=== PATIENT | female | born 2005 | race Caucasian/White ===

== ENCOUNTER 2024-04-22 11:18 | Emergency (ER) | payer OTHER, SELFPAY ==
--- NOTE | ~2024-04-22 | CT_ITS ---
CT of the Abdomen and Pelvis: Indication: Abdominal pain Technique: 2.5 mm axial scans were obtained through the abdomen and pelvis following intravenous adm inistration of 100 cc of Omnipaque 350. Dose reduction technique was used on this scan by utilizing a utomated exposure control and iterative reconstruction technique. The dose-length product (DLP) was 1 541.74 mGy-cm. Findings: Scans through the lung bases are unremarkable. The liver, spleen, pancreas, gallbladder, adrenals and kidneys are within normal limits. No evidence of aortic aneurysm. No lymphadenopathy. No bowel obstruction or bowel wall thickening. There is no evidence to suggest acute appendicitis. Images through the pelvis were performed. Urinary bladder unremarkable. No pelvic mass seen. No ascit es. Impression: No significant abnormalities seen. Reviewed, dictated and finalized at [facility]. Impression: No significant abnormalities seen.
[2024-04-22 11:29] VITALS: BP 142/82; PULSE 102; RESP 16; TEMP 36.6; O2SAT 98
--- NOTE | 2024-04-22 12:33 | ED.GENADULT ---
HPI - General Adult General Chief complaint: Abdominal Pain Stated complaint: abd pain N/V/D Time Seen by Provider: 04/22/24 12:23 Focused HPI: This is a 19-year-old female who presents to the ED with chief complaint of left lower quadrant abdominal pain referral from urgent care today. Endorsing N/V/D for the past couple of days as well. Reports multiple episodes of diarrhea and a couple episodes of vomiting. Denies GI bleeding symptoms. Endorses fever with T-max of 102? last night. Denies urinary symptoms, significant flank pain, back pain, chest pain, shortness of breath, cough. GENERAL: Well-appearing, well-nourished, and in no acute distress. HEAD: Normocephalic, atraumatic. CHEST: Clear to auscultation. No respiratory distress. HEART: Regular rate and rhythm. ABD: tenderness in LLQ without peritoneal signs. NEURO: Alert and oriented x3. Patient screened in triage and initial orders placed. Additional care and disposition to be based upon diagnostic testing and treatment. Source: patient Mode of arrival: ambulatory Limitations: no limitations Related Data Home Medications Medication Instructions Recorded Confirmed escitalopram oxalate 20 mg tablet 20 mg PO DAILY 04/22/24 04/22/24 (Lexapro) etonogestrel 0.12 mg-ethinyl 1 vag ring vaginal ONCE 04/22/24 04/22/24 estradiol 0.015 mg/24 hr vaginal ring (NuvaRing) Allergies Allergy/AdvReac Type Severity Reaction Status Date / Time No Known Allergies Allergy Verified 04/22/24 14:43 Course Vital Signs Vital signs: Vital Signs Temperature 97.8 F 04/22/24 11:29 Pulse Rate 102 H 04/22/24 11:29 Respiratory Rate 16 04/22/24 11:29 Blood Pressure 142/82 H 04/22/24 11:29 Pulse Oximetry 98 04/22/24 11:29 Temperature 98 F 04/22/24 15:30 Pulse Rate 77 04/22/24 15:30 Respiratory Rate 16 04/22/24 15:30 Blood Pressure 118/82 04/22/24 15:30 Pulse Oximetry 100 04/22/24 15:30 Medical Decision Making Vital Signs Vital Signs: Vital Signs Temperature 97.8 F 04/22/24 11:29 Pulse Rate 102 H 04/22/24 11:29 Respiratory Rate 16 04/22/24 11:29 Blood Pressure 142/82 H 04/22/24 11:29 Pulse Oximetry 98 04/22/24 11:29 Temperature 98 F 04/22/24 15:30 Pulse Rate 77 04/22/24 15:30 Respiratory Rate 16 04/22/24 15:30 Blood Pressure 118/82 04/22/24 15:30 Pulse Oximetry 100 04/22/24 15:30 Lab Data 04/22/24 12:43 04/22/24 12:43 Labs: Lab Results 04/22/24 04/22/24 Range/Units 12:43 13:06 WBC 14.8 H (4.5-10.0) K/mm3 RBC 5.35 (4.2-5.4) M/mm3 Hgb 14.5 (12.0-15.0) g/dL Hct 45.4 (37.0-47.0) % MCV 84.9 (80-100) fl MCH 27.1 (26-34) pg MCHC 31.9 L (32-36) g/dl RDW 15.9 H (11.5-14.5) % Plt Count 391 H (150-375) k/mm3 MPV 9.6 (7.4-10.4) fl Immature Gran % (Auto) 0.4 (0-0.5) % Neut % (Auto) 75.0 H (45.5-73.1) % Lymph % (Auto) 18.1 L (18.3-44.2) % [place] % (Auto) 5.2 (2.6-8.5) % Eos % (Auto) 0.8 (0-4.4) % Baso % (Auto) 0.5 (0.2-1.2) % Lymph # (Auto) 2.67 (0.9-3.2) K/mm3 [place] # (Auto) 0.8 H (0.1-0.6) K/mm3 Eos # (Auto) 0.1 (0-0.3) K/mm3 Baso # (Auto) 0.1 (0.0-0.1) K/mm3 Abs Immat Gran (auto) 0.06 H (0.00-0.031) K/mm3 Absolute Neuts (auto) 11.1 H (1.3-6.7) K/mm3 Absolute Nucleated RBC 0.000 (0.0-0.012) K/mm3 Nucleated RBC % 0.0 (0.0-0.2) % Sodium 139 (137-145) mmol/L Potassium 4.2 (3.4-5.0) mmol/L Chloride 102 (98-107) mmol/L Carbon Dioxide 24 (22-30) mmol/L Anion Gap 13 H (4-12) mmol/L BUN 9 (7-17) mg/dL Creatinine 0.60 L (0.7-1.0) mg/dL Estim Creat Clear Calc 173 ml/min Estimated GFR > 60 (59 - ) Glucose 84 (65-110) mg/dL Calcium 9.1 (8.4-10.2) mg/dL Total Bilirubin 0.3 (0.2-1.3) mg/dL AST 23 (14-36) U/L ALT 21 (6-35) U/L Alkaline Phosphatase 139 H (38-126) U/L Total Protein 9.0 H (6.3-8.2) g/dL Albumin
[2024-04-22 13:01] LABS: Basophils Absolute Auto 0.1 K/mm3 (0.0-0.1); Basophils Percent Auto 0.5 % (0.2-1.2); Eosinophils Absolute Auto 0.1 K/mm3 (0-0.3); Eosinophils Percent Auto 0.8 % (0-4.4); Hematocrit 45.4 % (37.0-47.0); Hemoglobin 14.5 g/dL (12.0-15.0); Immature Granulocyte Absolute 0.06 K/mm3 (0.00-0.031); Immature Granulocyte Percent A 0.4 % (0-0.5); Lymphocytes Absolute Auto 2.67 K/mm3 (0.9-3.2); Lymphocytes Percent Auto 18.1 % (18.3-44.2); Mean Corpuscular HGB Conc 31.9 g/dl (32-36); Mean Corpuscular Hemoglobin 27.1 pg (26-34); Mean Corpuscular Volume 84.9 fl (80-100); Mean Platelet Volume 9.6 fl (7.4-10.4); Monocytes Absolute Auto 0.8 K/mm3 (0.1-0.6); Monocytes Percent Auto 5.2 % (2.6-8.5); Neutrophils Absolute Auto 11.1 K/mm3 (1.3-6.7); Platelet Count Result 391 k/mm3 (150-375); Red Blood Count 5.35 M/mm3 (4.2-5.4); Red Cell Distribution Width 15.9 % (11.5-14.5); White Blood Count 14.8 K/mm3 (4.5-10.0)
[2024-04-22 13:03] LABS: Add Urine Microscopic? NO; Appearance Urine Clear (Clear); Bilirubin Urine Negative (Negative); Blood Urine Negative (Negative); Color Urine Yellow (Yellow); Glucose Urine UA Negative (Negative); Ketones Urine Negative (Negative); Leukocyte Esterase Ur Negative LEU/UL (Negative); Nitrate Urine Negative (Negative); Protein Urine Negative (Negative); Specific Grav Ur 1.024 (1.001-1.035); Urobilinogen Urine 0.2 mg/dL (<2.0); pH Urine 5.5 (5.0-9.0)
[2024-04-22 13:08] LABS: BEDSIDEPREGUCG Negative
[2024-04-22 13:14] LABS: Alanine Aminotransferase 21 U/L (6-35); Albumin Level 4.7 g/dL (3.5-5.1); Alkaline Phosphatase 139 U/L (38-126); Anion Gap 13 mmol/L (4-12); Aspartate Amino Transferase 23 U/L (14-36); Bilirubin,Total 0.3 mg/dL (0.2-1.3); Blood Urea Nitrogen 9 mg/dL (7-17); Calcium 9.1 mg/dL (8.4-10.2); Carbon Dioxide 24 mmol/L (22-30); Chloride 102 mmol/L (98-107); Estimated CRCL calculation 173 ml/min; Estimated Glomerular Filt Rate > 60; Glucose 84 mg/dL (65-110); Lipase 151 U/L (23-300); Potassium 4.2 mmol/L (3.4-5.0); Sodium 139 mmol/L (137-145)
[2024-04-22 14:45] VITALS: BP 125/75; PULSE 90; RESP 18; O2SAT 100
[2024-04-22] MEDS: LOPERAMIDE HCL 2 MG CAPSULE 4 MG PO (14:46)
[2024-04-22] MEDS: LACTATED RINGERS 1,000 ML 999 ML IV CONT (14:46)
[2024-04-22] MEDS: ONDANSETRON INJ 4 MG/2 ML VIAL IV PUSH (14:46)
[2024-04-22 15:30] VITALS: BP 118/82; PULSE 77; RESP 16; TEMP 36.6; O2SAT 100
== END 2024-04-22 15:34 | disposition home or self-care (01) ==
PROVIDERS: Physician Assistant; Emergency Provider Emergency Medicine
DX: R11.2 Nausea with vomiting, unspecified (principal); R19.7 Diarrhea, unspecified
CPT/HCPCS: 36415; 74177; 80053; 81003; 81025; 83690; 85025; 96361; 96374; 99284; A9270; J2405; J7120; Q9967

== ENCOUNTER 2024-09-08 04:08 | Emergency (ER) | payer OTHER, SELFPAY ==
[2024-09-08 04:15] VITALS: BP 129/62; PULSE 90; RESP 15; TEMP 36.9; O2SAT 98
[2024-09-08] MEDS: KETOROLAC 30 MG/ML VIAL (*BKC) 15 MG IM (04:34)
[2024-09-08 04:48] LABS: Strep Group A RT-PCR DETECTED (Negative)
--- NOTE | 2024-09-08 05:03 | ED_ITS ---
HPI - General Adult General Chief complaint: Unspecified Stated complaint: sore throat Time Seen by Provider: 09/08/24 04:10 History of Present Illness HPI narrative: Patient is a 19-year-old female who presents to the emergency department this evening complaining of a sore throat that started last night around 2200. Patient states that she generated at home but the pain persisted and she finally decided to come to the emergency department. Patient states that she does have a lot of pain with swallowing describing as following a knife. Patient reports fevers at home she states she took some Tylenol prior to arrival. Denies any cough, nasal congestion, or any shortness of breath. No additional symptoms or concerns at this time. Related Data Home Medications ?Medication ?Instructions ?Recorded ?Confirmed ?Last Taken ?Type escitalopram oxalate 20 mg tablet 20 mg PO DAILY 04/22/24 04/22/24 04/21/24 History (Lexapro) etonogestrel 0.12 mg-ethinyl 1 vag ring vaginal ONCE 04/22/24 04/22/24 Unknown History estradiol 0.015 mg/24 hr vaginal ring (NuvaRing) Allergies Allergy/AdvReac Type Severity Reaction Status Date / Time No Known Allergies Allergy Verified 09/08/24 04:21 Review of Systems Review of Systems: All systems are reviewed and are negative unless stated otherwise in the HPI. Exam Narrative: General: Alert, awake, afebrile, in no acute distress. HEENT: PERRL, no rhinorrhea, no post nasal drip, oropharynx erythema, no tonsillar exudates. Neck: Trachea midline, no JVD, no lymphadenopathy. Cardiovascular: Regular rate and rhythm, no murmurs, rubs or gallops, no peripheral edema. Respiratory: Clear to auscultation bilaterally, no tachypnea, no wheezing, no rhonchi, no rubs, no respiratory distress. Abdomen: Soft, nontender, nondistended, no rebound, no guarding, no peritoneal signs. Musculoskeletal: No joint swelling or deformity, normal muscle tone. Skin: No rashes or petechia, no signs of infection. Psychiatric: Alert and oriented, normal behavior and judgment for situation. Neurological: Alert and oriented to person, place, and time. Follows all commands. No focal deficits, speech is clear and fluent. Course Vital Signs Vital signs: Vital Signs Temperature 98.4 F 09/08/24 04:15 Pulse Rate 90 09/08/24 04:15 Respiratory Rate 15 09/08/24 04:15 Blood Pressure 129/62 09/08/24 04:15 Pulse Oximetry 98 09/08/24 04:15 Oxygen Delivery Room Air 09/08/24 04:15 Temperature 98.4 F 09/08/24 04:15 Pulse Rate 90 09/08/24 04:15 Respiratory Rate 15 09/08/24 04:15 Blood Pressure 129/62 09/08/24 04:15 Pulse Oximetry 98 09/08/24 04:15 Oxygen Delivery Room Air 09/08/24 04:15 Medical Decision Making MDM Narrative Medical decision making narrative: The patient was evaluated by myself in the emergency department. History is obtained from patient who is an independent historian and physical exam was performed. External medical records were reviewed at this time. Patient was administered 15 mg of IM Toradol and throat lozenges. Strep swab did return back positive for strep A. Differential diagnosis considerations include strep pharyngitis, acute viral syndrome, viral pharyngitis. Comorbidities impacting this visit include none. I have evaluated and discussed social determinants of health with the patient that could potentially impact subsequent diagnosis and treatment plans. On repeat assessment of the patient, reevaluation revealed that the patient is doing well and is in no acute distress. Patient symptoms have improved since she arrived to our emergency department. Repeat vital signs were all reviewed and noted to be stable. Differential diagnosis and treatment plan were discussed with the patient at bedside. Patient agrees with discussion and after shared medical decision making agrees with discharge. All questions were answered to the patient's satisfaction. Patient will follow up with her PCP in 3-5 days. Script for amoxicillin was sent to patient's pharmacy and she was instructed to take as prescribed. Patient was provided with strict return precautions and instructed to return to the emergency department if any new or worsening symptoms develop. The patient was discharged in stable condition. Vital Signs Vital Signs: Vital Signs Temperature 98.4 F 09/08/24 04:15 Pulse Rate 90 09/08/24 04:15 Respiratory Rate 15 09/08/24 04:15 Blood Pressure 129/62 09/08/24 04:15 Pulse Oximetry 98 09/08/24 04:15 Oxygen Delivery Room Air 09/08/24 04:15 Temperature 98.4 F 09/08/24 04:15 Pulse Rate 90 09/08/24 04:15 Respiratory Rate 15 09/08/24 04:15 Blood Pressure 129/62 09/08/24 04:15 Pulse Oximetry 98 09/08/24 04:15 Oxygen Delivery Room Air 09/08/24 04:15 Lab Data Labs: Lab Results 09/08/24 Range/Units 04:22 Influenza A (RT-PCR) Pending Influenza B (RT-PCR) Pending RSV (RT-PCR) Pending SARS-CoV-2 RNA (RT-PCR) Pending Group A Strep (PCR) Detected A (Negative) Discharge Plan Discharge Clinical Impression: Strep pharyngitis Patient Disposition: Home, Self-Care Condition: Improved Instructions: Antibiotic Form, Pharyngitis (ED) Additional Instructions: Please take the prescribed antibiotic as instructed. Follow-up with your family doctor within the next 3-5 days and return to the emergency department if any new or worsening symptoms develop. Patient Language: Sinhala Prescriptions: New amoxicillin 500 mg tablet 500 mg PO Q12H 10 Days Qty: 20 0RF No Action etonogestrel-ethinyl estradiol [NuvaRing] 0.12-0.015 mg/24 hr Ring 1 vag ring VAGINAL ONCE escitalopram oxalate [Lexapro] 20 mg Tablet 20 mg PO DAILY ondansetron 4 mg tablet,disintegrating 4 mg PO Q8H PRN (Reason: nausea and vomiting) Qty: 10 0RF bismuth subsalicylate [Bismuth] 262 mg tablet,chewable 2 tablet PO QID PRN (Reason: diarrhea) 5 Days Qty: 20 0RF Follow-up/Referrals: Gonzalo Calderon MD [Physician] - 3 Days UNKNOWN,DOCTOR [Primary Care Provider] - 3 Days Time of Disposition: 05:09
[2024-09-08 05:04] LABS: Influenza A QL RT-PCR Negative (Negative); Influenza B QL RT-PCR Negative (Negative); RSV RNA, RT-PCR Negative (Negative); SARS-CoV-2 RNA PCR Negative (Negative)
[2024-09-08 05:35] VITALS: BP 114/82; PULSE 88; RESP 14; O2SAT 98
--- OUTSIDE RECORDS SUMMARY | 2024-09-09 21:08 | XMS_ITS | Encounter Summary ---
Author Organization [facility] Address [address] [place] [address] Phone Care Team Providers Care Armored Car Messenger Name Role Phone Kerrie Luis MD Primary Care Provider [phone] Encounter Details Date Type Department Care Team (Late st Contact Info) Description 06/21/2014 Orders Only [facility] Info Mangement [address] [place] [address] America Mercedes MD [address] [place] [address] Mastoiditis of left side Social History Tobacco Use Types Packs/Day Years Used Date Smoking Tobacco: Never Smokeless Tobacco: Never Alcohol Use Standard Drinks/Week Comments No 0 (1 standard drink = 0.6 oz pur e alcohol) Comments No Sex and Gender Information Value Date Recorded Sex Assigned at Not on file Legal Sex Female 1:14 PM CDT Gender Identity Not on file Sexual Orientation Not on file documented as of this encounter Plan of Treatment Not on file documented as of this encounter Procedures Procedure Name Priority Date/Time Associated Diagnosis Comments CT TEMPORAL BONE (MASTOIDS) Urgent 04/22/2014 4:31 PM CDT Mastoiditis of left side documented in this encounter Results * CT TEMPORAL BONE (MASTOIDS) (04/22/2014 4:31 PM CDT) Anatomical Region Laterality Modality Head N/A Computed Tomogra phy us America Mercedes MD CT Final Resul t documented in this encounter Visit Diagnoses Diagnosis Mastoiditis of left side Unspecified mastoiditis documented in this encounter Care Teams Armored Car Messenger Relationship Specialty Start Date End Date Kerrie Luis MD [address] [place] [address] PCP - General Family Medicine 03/04/16 documented as of this encounter
--- OUTSIDE RECORDS SUMMARY | 2024-09-09 21:08 | XMS_ITS | Clinical Summary ---
Author Organization [facility] Address [address] [place] [address] Phone Care Team Providers Care Piecer Name Role Phone Kerrie Luis MD Primary Care Provider [phone] Allergies No known active allergies Medications No known medications Active Problems No known active problems Resolved Problems Problem Noted Date Diagnosed Date Resolved Date Multiple wounds of skin 04/19/201704/19 Assessment & Plan (04/19/2017 7:05 PM CDT): - multiple areas of circular redness with scabbed over central portion. At this point rash is slightly difficult to assess because of excoriation. - will culture 1 of the lesions which is slightly open. - given redness, painful to touch and history of MRSA in the past I will treat more aggressively with clindamycin - counseled yogurt and probiotics to decrease likelihood of diarrhea - follow up with primary care physician in 1-2 days Immunizations Name Administration Dates Next Due DTaP-Acellular (Infanrix) 05/16/2008 DTaP-Daptacel (Diptheria, Te tanus, Pertussis) 06/05/2004,2003,2003,04/29 HEP B - Engerix 0.5ml 2003,2003,01/2003 HIB (ACTHIB) 06/05/2004, 4,2003,04/29 Hepatitis A - Pediatric 05/04/2020() Human Papillomavirus (Gardasil 9) 05/04/2020 Qodvqat-Yadec-Hptwylf - MMR 05/16/2008, 4 Meningococcal (MENACTRA) 06/01/2014 Meningococcal (MENVEO) 05/04/2020 Pneumococcal Conjugate-13 (PREVNAR 13) 0 05/16/2008,2003,2003,04/29 Polio Virus (IPOL) 05/16/2008, 4,2003,04/29 T-dap (ADACEL) 06/01/2014 Varicella (VARIVAX) 05/16/2008,03/08/2004 Family History Medical History Relation Name Comments Alcohol/Drug Brother Prostate Cancer Paternal Grandfather Relation Name Status Comments Brother Father Alive Maternal Grandfather Alive Maternal Grandmother Alive Mother Alive Paternal Grandfather Alive Paternal Grandmother Alive Social History Tobacco Use Types Packs/Day Years Used Date Smoking Tobacco: Never Smokeless Tobacco: Never Alcohol Use Standard Drinks/Week Comments No 0 (1 standard drink = 0.6 oz pur e alcohol) Interpersonal Safety Answer Date Record ed Feels unsafe at home, work, or school Not on warner e 09/19/2023 Feels threatened by someone Not on file 09/2023 Witholding contact with othe rs or doing things outside of your home Not on file 09/19/2023 Physical Abuse Not on file 09/19/2023 Comments No Sex and Gender Information Value Date Recorded Sex Assigned at Not on file Legal Sex Female 1:14 PM CDT Gender Identity Not on file Sexual Orientation Not on file Occupation Industry Job Start Date Job End Date student Not on file Not on file Not on file Last Filed Vital Signs Vital Sign Reading Time Taken Comments Blood Pressure 112/76 05/04/2020 2:33 PM CDT Pulse 90 05/04/2020 2:33 PM CDT Temperature 37.1 ??C (98.8 ??F) 05/04/2020 2:33 PM CD T Respiratory Rate 18 05/04/2020 2:33 PM CDT Oxygen Saturation 100% 05/04/2020 2:33 PM CDT Inhaled Oxygen Concentration - - Weight 112.4 kg (247 lb 12.8 oz) 05/04/2020 2:33 PM CDT Height 170 cm (5' 6.93 ) 03/23/2019 3:01 PM CDT Body Mass Index 38.89 03/23/2019 3:01 PM CDT Plan of Treatment Health Maintenance Due Date Last Done Comments Depression Screening 2015 Chlamydia Screening 2018 HPV Vaccines (2 - 3-dose series) 06/01/2020 05/04/2020 Pap Smear 02/21/2024 COVID-19 Vaccine ( season) 2024 Influenza Vaccine (#1) 2024 DTaP/Tdap/Td Vaccines (7 - Td or Tdap) 06/01/2024 06/01/2014, 05/16/2008, 06/05/2004, Additional history exists Hepatitis B Vaccines Completed 2003, 2003, 2003 HIB Vaccines Completed 06/05/2004, 08/19, 2003, Additional history exists IPV Vaccines Completed 05/16/2008, 08/19, 2003, Additional history exists MMR Vaccines Completed 05/16/2008, 03/08/2004 Pneumococcal Vaccines (0-64 Years) Aged Out 05/16/2008, 2003, 2003, Additional history exists No longer eligible based on patient's age to complete this topic Varicella Vaccines Completed 05/16/2008, 03/08/2004 Meningococcal Vaccine (ACWY) Completed 05/04/2020, 06/01/2014 Hepatitis A Vaccines Aged Out No long er eligible based on patient's age to complete this topic Rotavirus Vaccines Aged Out No longer eligible based on patient's age to complete this topic Care Teams Piecer Relationship Specialty Start Date End Date Kerrie Luis MD [address] [place] [address] PCP - General Family Medicine 03/04/16
--- OUTSIDE RECORDS SUMMARY | 2024-09-09 21:08 | XMS_ITS | Encounter Summary ---
Author Organization [facility] nter Address [address] [place] [address] Care Team Providers Care Hotel Maintenance Worker Name Role Phone Ching Carrera NP Primary Care Provider + Encounter Details Date Type Department Care Team (Late Contact Info) Description 04/27/2020 Scanned Document [facility] [address] [place] [address] Roseann Kearns NP [address] [place] [address] Social History Tobacco Use Types Packs/Day Years Used Date Smoking Tobacco: Never Smokeless Tobacco: Never Comments Unknown Sex and Gender Information Value Date Recorded Sex Assigned at Female 04/26/2020 2:05 PM CDT Legal Sex Female 10:46 PM CAR BODY INSPECTOR Gender Identity Not on file Sexual Orientation Not on file COVID-19 Exposure Response Date Recorded In the last month, have you been in contact with someone who was confirmed or suspected to have Coronavirus / COVID-19? No / Unsure 04/26/2020 4:23 PM CDT documented as of this encounter Plan of Treatment Upcoming Encounters Date Type Department Care Team (Late Contact Info) Description 08/08/2025 9:00 AM CAR BODY INSPECTOR Office Visit [facility] [place] [address] [facility] [address] [place], [place] [id number] Brodie Campos MD [address] [place] [address] documented as of this encounter Visit Diagnoses Not on filedocumented in this encounter Care Teams Hotel Maintenance Worker Relationship Specialty Start Date End Date Ching Carrera NP [address] [place] [address] PCP - General Family Medicine 06/08/24 documented as of this encounter
--- OUTSIDE RECORDS SUMMARY | 2024-09-09 21:08 | XMS_ITS | Encounter Summary ---
Author Organization [facility] Address [address] [place] [address] Phone Care Team Providers Care Ocean Forwarder Name Role Phone Kerrie Luis MD Primary Care Provider [phone] Encounter Details Date Type Department Care Team (Late st Contact Info) Description 03/25/2019 Patient Related Communication [facility] Medicine [address] [place] [address] Douglas Norris PA [address] [place] [address] Social History Tobacco Use Types Packs/Day Years [...] file Not on file Not on file documented as of this encounter Plan of Treatment Not on file documented as of this encounter Visit Diagnoses Not on filedocumented in this encounter Care Teams Ocean Forwarder Relationship Specialty Start Date End Date Kerrie Luis MD [address] [place] [address] PCP - General Family Medicine 03/04/16 documented as of this encounter
--- OUTSIDE RECORDS SUMMARY | 2024-09-09 21:08 | XMS_ITS | Clinical Summary ---
Author Organization [facility] nter Address [address] [place] [id number] Care Team Providers Care Space Scheduler Name Role Phone Ching Carrera NP Primary Care Provider + Allergies No known active allergies Medications etonogestreL-et hinyl estradioL (Nuvaring) 0.12-0.015 mg/24 hr vaginal ring Insert 1 each every 28 days into the vagina Insert vaginally and leave in place for 3 consecutive weeks, then remove for 1 week. Active albuterol 90 mcg/actuation (Proair/Provent il/Ventolin HFA) inhaler 4 Active escitalopram (Lexapro) 10 MG tablet Take 1.5 tablets (15 mg total) daily by mouth 4 Active hydrOXYzine (Vistaril) 25 MG capsule Take 1 capsule (25 mg total) as needed by mouth 4 Active amoxicillin (Amoxil) 875 MG tablet 4 Active ibuprofen (Motrin) 800 MG tablet 4 Active propranolol (Innopran XL) 80 MG 24 hr capsule Take 1 capsule (80 mg total) nightly by mouth 90 capsule 1 4 01/30/20 25 Active Active Problems Problem Noted Date Diagnosed Date Near syncope 06/22/2024 Assessment & Plan (08/02/2024 9:39 AM ACCOUNT DIRECTOR): Assessment & Plan (06/23/2024 7:54 PM ACCOUNT DIRECTOR): Previous labs and EKG reviewed and unremarkable. Plan for event monitor, echo, and cardiac referral. Advised pt to go to ER with any worsening symptoms or syncopal episodes. Orders: Holter Monitor - 14 Day; Future AMB Referral to Cardiology; Future Echocardiogram 2D Complete w/Doppler; Standing Echocardiogram 2D Complete w/Doppler Hypertension 06/22/2024 Assessment & Plan (06/23/2024 7:54 PM ACCOUNT DIRECTOR): Orders: Holter Monitor - 14 Day; Future AMB Referral to Cardiology; Future Echocardiogram 2D Complete w/Doppler; Standing Echocardiogram 2D Complete w/Doppler Palpitations 06/22/2024 Assessment & Plan (08/02/2024 9:39 AM ACCOUNT DIRECTOR): Assessment & Plan (06/23/2024 7:54 PM ACCOUNT DIRECTOR): Orders: Holter Monitor - 14 Day; Future AMB Referral to Cardiology; Future Echocardiogram 2D Complete w/Doppler; Standing Echocardiogram 2D Complete w/Doppler Encounters Date Type Department Care Team Description 08/02/2024 9:00 AM ACCOUNT DIRECTOR Office Visit [facility] [place] [address] [address] Brodie Campos MD Near syncope (Primary Dx); Palpitations 07/05/2024 7:43 AM ACCOUNT DIRECTOR - 07/05/2024 11:59 PM ACCOUNT DIRECTOR Hospital Encounter [facility] [address] [place] [address] Near syncope; Palpitations; Hypertension, unspecified type Discharge Disposition: HOME OR SELF CARE (ROUTINE DISCHARG 06/24/2024 Telephone [facility] [place] [address] [address] Brodie Campos MD Appointment 06/22/2024 3:20 PM ACCOUNT DIRECTOR Office Visit [facility] [address] [place] [address] Ching Carrera NP Near syncope (Primary Dx); Palpitations; Hypertension, unspecified type 06/11/2024 Transcribe Orders [facility] [address] [place] [address] Ching Carrera, ULISES Migraine without status migrainosus, not intractable, unspecified migraine type (Primary Dx) from Last 3 Months Immunizations Immunization Administration Dates Next Due DTaP 05/16/2008, 4,2003,07/11,2003 DTaP 5 06/05/2004, 4,2003,04/29 Gardasil 9 05/04/2020,05/04/2020 Hep B / HiB 2003 Hep B, Adolescent or Pediatric 2003,2002 Hepatitis B 2003 HiB 06/05/2004,2003,2003 Hib (PRP-T) 06/05/2004, 4,2003,04/29 IPV 05/16/2008, 4,2003,04/29 Influenza MDCK Quadrivalent PF 05/28/2023 Influenza Quadrivalent Prese rvative Free 05/01/2024 MMR 05/16/2008,03/08/2004 Meningococcal ACWY (Menveo) 06/01/2014 Meningococcal Conjugate ACWY (Menactra) 05/04/2020,05/04/2020 Pneumococcal Conjugate 06/05/2004,2003,2003,04/29 Tdap 03/10/2024,06/01/2014 Varicella 05/16/2008,03/08/2004 pneumococcal Conjugate 13-Valent 008,2003,2003,04/29 Family History Medical History Relation Name Comments No Known Problems Father No Known Problems Mother Relation Name Status Comments Father Alive Mother Alive Social History Tobacco Use Types Packs/Day Years Used Date Smoking Tobacco: Never Smokeless Tobacco: Never Tobacco Cessation:Counseling Given: Yes Alcohol Use Standard Drinks/Week Comments Yes 0 (1 standard drink = 0.6 oz pur e alcohol) Comments No Sex and Gender Information Value Date Recorded Sex Assigned at Female 04/26/2020 2:05 PM CDT Legal Sex Female 10:46 PM ACCOUNT DIRECTOR Gender Identity Not on file Sexual Orientation Not on file Last Filed Vital Signs Vital Sign Reading Time Taken Comments Blood Pressure 130/82 08/02/2024 9:05 AM ACCOUNT DIRECTOR Pulse 99 08/02/2024 9:05 AM ACCOUNT DIRECTOR Temperature 36.6 ??C (97.8 ??F) 06/22/2024 3:30 PM CS T Respiratory Rate 18 08/02/2024 9:05 AM ACCOUNT DIRECTOR Oxygen Saturation 99% 08/02/2024 9:05 AM ACCOUNT DIRECTOR Inhaled Oxygen Concentration - - Weight 127 kg (279 lb 6.4 oz) 08/02/2024 9:05 AM ACCOUNT DIRECTOR Height 170.2 cm (5' 7 ) 08/02/2024 9:05 AM ACCOUNT DIRECTOR Body Mass Index 43.76 08/02/2024 9:05 AM ACCOUNT DIRECTOR Plan of Treatment Upcoming Encounters Date Type Department Care Team (Late st Contact Info) Description 08/08/2025 9:00 AM ACCOUNT DIRECTOR Office Visit [facility] [place] [address] [facility] [address] [place] [address] Brodie Campos MD [address] [place] [address] Health Maintenance Due Date Last Done Comments Pap Smear 02/21/2024 COVID-19 Vaccine ( season) 04/18/202409/2020, 02/26/2021 Hypertension Annual Creatinine 06/08/2025 06/08/2024 Hypertension Annual Potassium 06/08/2025 06/08/2024 Preventive Care and Screenin g: Influenza Immunization Completed 05/01/2024, 05/28/2023 Procedures Procedure Name Priority Date/Time Associated Diagnosis Comments HOLTER MONITOR - 14 DAY Routine 07/05/2024 8:04 AM ACCOUNT DIRECTOR Near syncope Palpitations Hypertension, unspecified type COMPREHENSIVE METABOLIC PANEL Routine 06/08/2024 2:41 PM CDT Migraine without status migrainosus, not intractable, unspecified migraine type from Last 3 Months or Most Recently Relevant to Health Maintenance Results * Holter Monitor - 14 Day (07/05/2024 8:04 AM ACCOUNT DIRECTOR) Narrative Godfrey Robb MD - 07/29/2024 7:34 AM ACCOUNT DIRECTOR AMBULATORY 14-DAY HOLTER MONITOR REPORT INTERPRETATION: Ambulatory ECG analysis was performed for a period of 11 days and 18 hours. Average heart rate was 93 bpm with a maximum rate of 155 bpm and a minimum rate of 62 bpm. - Predominant rhythm is sinus. - Sinus tachycardia burden = 28.3% - Rare (<0.01%) PVCs. ??No ventricular couplets and no ventricular tachycardia. - Rare (<0.01%) PACs. ??No sustained atrial tachycardias. -Atrial fibrillation/flutter = 0% - No significant pauses or high grade AV blocks. - Normal heart rate variability. - Patient triggered recordings 31 times that correlated with sinus tachycardia. us Ching Carrera NP [facility] Final Result * (ABNORMAL) Comprehensive Metabolic Panel (06/08/2024 2:41 PM CDT) Sodium 139 136 - 145 mmol/L 06/08/2024 10:27 PM [facility] Potassium 4.0 3.5 - 5.1 mmol/L 06/08/2024 10:27 PM [facility] Chloride 107 98 - 107 mmol/L 06/08/2024 10:27 PM [facility] CO2 Total 26.0 20.0 - 31.0 mmol/L 06/08/2024 10:27 PM [facility] Blood Urea Nitrogen 12 9 - 23 mg/dL 06/08/2024 10:27 PM [facility] Creatinine 0.73 0.55 - 1.02 mg/dL 06/08/2024 10:27 PM [facility] Glucose, Random 86 74 - 106 mg/dL 06/08/2024 10:27 PM [facility] Calcium, Total 9.3 8.7 - 10.4 mg/dL 06/08/2024 10:27 PM [facility] Alkaline Phosphatase 125.0(H) 46.0 - 116.0 U/L 06/08/2024 10:27 PM [facility] Albumin 4.2 3.2 - 4.8 g/dL 06/08/2024 10:27 PM [facility] ALT (SGPT) 17 10 - 49 U/L 06/08/2024 10:27 PM [facility] AST (SGOT) 13 0 - 34 U/L 06/08/2024 10:27 PM [facility] Bilirubin Total <0.20(L) 0.20 - 1.10 mg/dL 06/08/2024 10:27 PM [facility] Total Protein 7.4 5.7 - 8.2 g/dL 06/08/2024 10:27 PM [facility] Globulin 3.2 1.5 - 4.3 g/dL 06/08/2024 10:27 PM [facility] Anion Gap 10(L) 11 - 20 mEq/L 06/08/2024 10:27 PM [facility] Bun Creatinine Ratio 16.4 12.0 - 20.0 Ratio 06/08/2024 10:27 PM [facility] GFR Estimate 120 >=60 mL/min/1. 73m2 06/08/2024 10:27 PM [facility] Comment:Calculation based on the Chronic Kidney Disease Epidemiology Collaboration (CKD-EPI) equation refit without adjustment for race. Albumin/Globulin Ratio 1.3 1.2 - 2.2 Ratio 06/08/2024 10:27 PM [facility] Blood Venous blood / Unknown Venipuncture / Unknown 06/08/2024 2:41 PM CDT 06/08/2024 2:41 PM CDT Ching Carrera NP LAB BLOOD ORDERABLES Fin al Result [facility] [address] [place] [address], [place] [phone] from Last 3 Months or Most Recently Relevant to Health Maintenance Insurance [facility] Care Teams Space Scheduler Relationship Specialty Start Date End Date Ching Carrera NP [address] [place] [address] PCP - General Family Medicine 06/08/24
--- OUTSIDE RECORDS SUMMARY | 2024-09-09 21:08 | XMS_ITS | Encounter Summary ---
Author Organization [facility] nter Address [address] [place] [address] Care Team Providers Care Waste Management Engineer Name Role Phone Ching Carrera LEAD INFRASTRUCTURE ARCHITECT Primary Care Provider + Encounter Details Date Type Department Care Team (Latest Contact Info) Description 06/11/2024 Transcribe Orders [facility] [address] [place], [place] [address] Ching Carrera, ULISES [address] [facility] [place] [address] Migraine without status migrainosus, not intractable, unspecified migraine type (Primary Dx) Social History Tobacco Use Types Packs/Day Years Used Date Smoking Tobacco: Never Smokeless Tobacco: Never Alcohol Use Standard Drinks/Week Comments Yes 0 (1 standard drink = 0.6 oz pur e alcohol) Comments No Sex and Gender Information Value Date Recorded Sex Assigned at Female 04/26/2020 2:05 PM CDT Legal Sex Female 10:46 PM LINK FABRIC MACHINE OPERATOR Gender Identity Not on file Sexual Orientation Not on file documented as of this encounter Plan of Treatment Upcoming Encounters Date Type Department Care Team (Late st Contact Info) Description 08/08/2025 9:00 AM LINK FABRIC MACHINE OPERATOR Office Visit [facility] [place] [address] [facility] [address] [place] [address] Brodie Campos MD [address] [place] [address] documented as of this encounter Results * ECG 12 lead (06/08/2024 2:50 PM CDT) MUSE SYSTOLIC BP MUSE MUSE DIASTOLIC BP MUSE MUSE VENTRICULAR RATE 96 BPM MUSE MUSE ATRIAL RATE 96 BPM MUSE MUSE P-R INTERVAL 138 ms MUSE MUSE QRS DURATION 92 ms MUSE MUSE Q-T INTERVAL 352 ms MUSE MUSE QTC CALCULATION 444 ms MUSE MUSE CALCULATED P AXIS 61 degrees MUSE MUSE CALCULATED R AXIS 37 degrees MUSE MUSE CALCULATED T AXIS 15 degrees MUSE MUSE DIAGNOSIS LINE Normal sinus rhythm Normal ECG No previous ECGs available for comparison MUSE 06/08/2024 2:50 PM CDT 06/12/2024 7:04 AM CDT Ching Carrera NP ECG ORDERABLES Final Re sult MUSE documented in this encounter Visit Diagnoses Diagnosis Migraine without status migrainosus, not intractable, unspecified migraine type- Primary documented in this encounter Care Teams Waste Management Engineer Relationship Specialty Start Date End Date Ching Carrera NP [address] [place] [address] PCP - General Family Medicine 06/08/24 documented as of this encounter
== END 2024-09-08 05:35 | disposition home or self-care (01) ==
PROVIDERS: Emergency Provider Emergency Medicine
DX: J02.0 Streptococcal pharyngitis (principal); Z20.822 Contact with and (suspected) exposure to COVID-19
CPT/HCPCS: 87637; 87651; 96372; 99283; A9270; J1885

== ENCOUNTER 2024-09-09 21:26 | Emergency (ER) | payer OTHER, SELFPAY ==
--- NOTE | ~2024-09-09 | CT_ITS ---
CT scan of the Neck Technique: 2.5 mm axial scans were obtained through the neck after intravenous administration of 75 c c Omnipaque 350. Coronal and sagittal reconstructions of the neck were obtained. Dose reduction techn ique was used on this scan by utilizing automated exposure control and iterative reconstruction techn ique. The dose-length product (DLP) was 579.92 mGy-cm. Clinical History: Peritonsillar abscess Findings: There are bilateral enlarged level 2 cervical lymph nodes, left greater than right. Largest node dustin ures 2.2 x 2.0 cm. Parapharyngeal spaces appear normal bilaterally. Parapharyngeal fat preserved. No abscess. [place] tonsils are mildly prominent. The parotid and submandibular glands appear normal. The pharyngeal mucosal spaces appear normal. No soft tissue masses are seen in the neck. The thyroid gland appears normal. Images of the lung apices reveal no abnormalities. Visually paranas al sinuses and mastoid air cells are clear. Impression: Bilateral cervical lymphadenopathy, predominantly level 2, likely representing nonspecific lymphadeni tis or reactive lymph nodes. Mild prominence of palatine tonsils, left worse than right, could reflect tonsillitis. No abscess or phlegmonous change. Reviewed, dictated and finalized at [facility]. STER Impression: Bilateral cervical lymphadenopathy, predominantly level 2, likely representing nonspecific lymphadenitis or reactive lymph nodes. Mild prominence of palatine tonsils, left worse than right, could reflect tonsi llitis. No abscess or phlegmonous change.
[2024-09-09 21:48] VITALS: BP 133/84; PULSE 95; RESP 20; TEMP 36.6; O2SAT 100
[2024-09-10] MEDS: LIDOCAINE 2% VISC SOLN 15 ML UDC PO (01:50)
[2024-09-10] MEDS: SODIUM CHLORIDE 0.9% IV 1,000 ML 999 ML IV CONT (01:52)
[2024-09-10] MEDS: MORPHINE SULFATE (*CRX) 4 MG/ML INJ IV PUSH (01:52)
[2024-09-10] MEDS: dexAMETHasone SOD PHOS INJ 10 MG/ML 1 ML VIAL IV PUSH (01:52)
[2024-09-10] MEDS: ONDANSETRON INJ 4 MG/2 ML VIAL IV PUSH (01:52)
[2024-09-10] MEDS: AMPICILLIN SULB 3 GM/NS 100 ML 3 GM/100 ML VIAL IVPB (01:53)
--- NOTE | 2024-09-10 01:53 | ED.URI ---
HPI - URI/Sore Throat General Chief Complaint: Upper Respiratory Infection <KATE Lagunas Last Filed: 09/10/24 17:07> Stated Complaint: sore throat <KATE Lagunas Last Filed: 09/10/24 17:07> Time Seen by Provider: 09/10/24 00:22 <KATE Lagunas Last Filed: 09/10/24 17:07> Source: patient and old records reviewed <KATE Lagunas Last Filed: 09/10/24 17:07> Mode of arrival: ambulatory <KATE Lagunas Last Filed: 09/10/24 17:07> Limitations: no limitations <KATE Lagunas Last Filed: 09/10/24 17:07> History of Present Illness HPI Narrative: Patient is a 19-year-old female who presents the ED with report of sore throat and difficulty swallowing. Patient reports she was seen in the ED here 2 days ago and diagnosed with strep throat. Started on amoxicillin. States she has had worsening symptoms since then, worsening pain, difficulty swallowing, feeling of difficulty breathing with lying flat. Has been able to keep down some fluids, but has discomfort with this. Has been taking ibuprofen, Tylenol at home without improvement. Reports intermittent fevers at home. Denies nausea, vomiting. <KATE Lagunas Last Filed: 09/10/24 17:07> Related Data Home Medications: Home Medications ?Medication ?Instructions ?Recorded ?Confirmed ?Last Taken ?Type escitalopram oxalate 20 mg tablet 20 mg PO DAILY 04/22/24 04/22/24 04/21/24 History (Lexapro) etonogestrel 0.12 mg-ethinyl 1 vag ring vaginal ONCE 04/22/24 04/22/24 Unknown History estradiol 0.015 mg/24 hr vaginal ring (NuvaRing) <KATE Lagunas Last Filed: 09/10/24 17:07> Allergies/Adverse Reactions: Allergies Allergy/AdvReac Type Severity Reaction Status Date / Time No Known Allergies Allergy Verified 09/09/24 21:55 <Nasima Kang PA-C - Last Filed: 09/10/24 17:07> Review of Systems Review of Systems: All systems reviewed & are unremarkable except as noted in HPI. <Nasima Kang PA-C - Last Filed: 09/10/24 17:07> All systems reviewed & are unremarkable except as noted in HPI and below <Nasima Kang PA-C - Last Filed: 09/10/24 17:07> Exam Narrative: GENERAL: Uncomfortable appearing, obese with BMI of 39.5, in mild acute distress due to pain HEAD: Normocephalic, atraumatic. ENT: MMs dry. Difficulty opening mouth fully due to pain. No trismus. Moderate posterior pharynx erythema with tonsillar hypertrophy bilaterally, nearly touching. Right tonsil appears slightly greater than left. Diffuse exudates throughout bilateral tonsils. Slight deviation of uvula to the left. RESPIRATORY: Airway patent, respirations nonlabored. Clear to auscultation bilaterally, no rales, rhonchi, wheezing. No stridor or distress. CARDIOVASCULAR: Tachycardic with regular rhythm without murmurs, rubs, or gallops. MUSCULOSKELETAL: Moves all extremities. No gross deformities. SKIN: Warm, dry, normal color. NEURO: A&O X3. Speech clear. Cranial nerves II-XII grossly intact. Steady gait. No ataxic movements. PSYCHIATRIC: Tearful. Normal interaction. <Nasima Kang PA-C - Last Filed: 09/10/24 17:07> Course TOE POUNDER/PA Physician Supervision For this patient encounter, I reviewed the TOE POUNDER or PA documentation, treatment plan, and medical decision making and had [id number] time with this patient. I performed all aspects of the MDM as documented. <Ryley Nam MD - Last Filed: 09/10/24 05:16> Vital Signs Vital signs: Vital Signs Temperature 97.9 F 09/09/24 21:48 Pulse Rate 95 09/09/24 21:48 Respiratory Rate 20 09/09/24 21:48 Blood Pressure 133/84 09/09/24 21:48 Pulse Oximetry 100 09/09/24 21:48 Oxygen Delivery Room Air 09/09/24 21:48 Temperature 97.9 F 09/09/24 21:48 Pulse Rate 92 09/10/24 05:33 Respiratory Rate 15 09/10/24 05:33 Blood Pressure 112/70 09/10/24 05:33 Pulse Oximetry 100 09/10/24 05:33 Oxygen Delivery Room Air 09/09/24 21:48 <Nasima Kang PA-C - Last Filed: 09/10/24 17:07> Vital Signs Temperature 97.9 F 09/09/24 21:48 Pulse Rate 95 09/09/24 21:48 Respiratory Rate 20 09/09/24 21:48 Blood Pressure 133/84 09/09/24 21:48 Pulse Oximetry 100 09/09/24 21:48 Oxygen Delivery Room Air 09/09/24 21:48 Temperature 97.9 F 09/09/24 21:48 Pulse Rate 92 09/10/24 05:33 Respiratory Rate 15 09/10/24 05:33 Blood Pressure 112/70 09/10/24 05:33 Pulse Oximetry 100 09/10/24 05:33 Oxygen Delivery Room Air 09/09/24 21:48 <Ryley Nam MD - Last Filed: 09/10/24 05:16> MDM - URI/Sore Throat MDM Narrative Medical decision making narrative: Patient presented to ED with known strep pharyngitis with worsening pain, swelling, difficulty swallowing. Vital signs are stable upon arrival. Patient is afebrile here. Exam concerning for possible [employer] DEMONSTRATION AGENT. Lab and imaging will be obtained. Given Decadron, Unasyn, viscous lidocaine, pain medicine in the ED[place] [address]. Neutrophil predominance. No bandemia. CMP with minimal anion gap of 13. Fluids given. Soft tissue neck CT obtained and pending. Care signed out to Dr. Nam at shift change pending STAT RAD CT results. <Nasima Kang PA-C - Last Filed: 09/10/24 17:07> Patient presented to ED with known strep pharyngitis with worsening pain, swelling, difficulty swallowing. Vital signs are stable upon arrival. Patient is afebrile here. Exam concerning for possible COUNTY [employer]ONSTRATION AGENT. Lab and imaging will be obtained. Given Decadron, Unasyn, viscous lidocaine, pain medicine in the ED[place] [address]. Neutrophil predominance. No bandemia. CMP with minimal anion gap of 13. Fluids given. Soft tissue neck CT obtained and pending. Care signed out to Dr. Nam at shift change pending STAT RAD CT results. Cyril: Patient was signed out to me pending CT soft tissue neck with IV contrast. CT was obtained and independently interpreted by me revealing tonsillitis, no evidence of abscess. Patient was administered 10 mg of IV Decadron in the emergency department and was informed that she will be sent home on a script for a Medrol Dosepak to take as prescribed. In addition to this, patient was instructed to finish the antibiotic course that she was prescribed a few days ago and patient is agreeable. She will follow-up with ENT within the next 3-5 days. Patient was provided with strict return precautions instructed to return to the emergency department if any new or worsening symptoms. She was discharged in stable condition. <Ryley Nam MD - Last Filed: 09/10/24 05:16> Medical Records Attestation: I reviewed the patient's medical records. <Nasima Kang PA-C - Last Filed: 09/10/24 17:07> Lab Data Attestation: I reviewed the patient's lab results. <Nasima Kang PA-C - Last Filed: 09/10/24 17:07> Result diagrams: 09/10/24 01:48 09/10/24 02:04 <Nasima Kang PA-C - Last Filed: 09/10/24 17:07> Labs: Lab Results 09/10/24 09/10/24 09/10/24 Range/Units 01:48 02:00 02:04 WBC 22.2 H (4.5-10.0) K/mm3 RBC 4.91 (4.2-5.4) M/mm3 Hgb 13.2 (12.0-15.0) g/dL Hct 40.9 (37.0-47.0) % MCV 83.3 (80-100) fl MCH 26.9 (26-34) pg MCHC 32.3 (32-36) g/dl RDW 15.8 H (11.5-14.5) % Plt Count 322 (150-375) k/mm3 MPV 9.6 (7.4-10.4) fl Immature Gran % (Auto) 0.7 H (0-0.5) % Neut % (Auto) 82.2 H (45.5-73.1) % Lymph % (Auto) 8.2 L (18.3-44.2) % Cotton % (Auto) 7.9 (2.6-8.5) % Eos % (Auto) 0.7 (0-4.4) % Baso % (Auto) 0.3 (0.2-1.2) % Lymph # (Auto) 1.82 (0.9-3.2) K/mm3 Cotton # (Auto) 1.7 H (0.1-0.6) K/mm3 Eos # (Auto) 0.2 (0-0.3) K/mm3 Baso # (Auto) 0.1 (0.0-0.1) K/mm3 Abs Immat Gran (auto) 0.16 H (0.00-0.031) K/mm3 Absolute Neuts (auto) 18.2 H (1.3-6.7) K/mm3 Absolute Nucleated RBC 0.000 (0.0-0.012) K/mm3 Nucleated RBC % 0.0 (0.0-0.2) % Sodium 138 (137-145) mmol/L Potassium 3.6 (3.4-5.0) mmol/L Chloride 104 (98-107) mmol/L Carbon Dioxide 21 L (22-30) mmol/L Anion Gap 13 H (4-12) mmol/L BUN 5 L (7-17) mg/dL Creatinine 0.51 L (0.7-1.0) mg/dL Estim Creat Clear Calc 197 ml/min Estimated GFR > 60 (59 - ) Glucose 111 H (65-110) mg/dL Calcium 8.5 (8.4-10.2) mg/dL POC Urine HCG, Qual Negative (Negative) Monoscreen Negative (Negative) <Nasima Kang PA-C - Last Filed: 09/10/24 17:07> Lab Results 09/10/24 09/10/24 09/10/24 Range/Units 01:48 02:00 02:04 WBC 22.2 H (4.5-10.0) K/mm3 RBC 4.91 (4.2-5.4) M/mm3 Hgb 13.2 (12.0-15.0) g/dL Hct 40.9 (37.0-47.0) % MCV 83.3 (80-100) fl MCH 26.9 (26-34) pg MCHC 32.3 (32-36) g/dl RDW 15.8 H (11.5-14.5) % Plt Count 322 (150-375) k/mm3 MPV 9.6 (7.4-10.4) fl Immature Gran % (Auto) 0.7 H (0-0.5) % Neut % (Auto) 82.2 H (45.5-73.1) % Lymph % (Auto) 8.2 L (18.3-44.2) % Cotton % (Auto) 7.9 (2.6-8.5) % Eos % (Auto) 0.7 (0-4.4) % Baso % (Auto) 0.3 (0.2-1.2) % Lymph # (Auto) 1.82 (0.9-3.2) K/mm3 Cotton # (Auto) 1.7 H (0.1-0.6) K/mm3 Eos # (Auto) 0.2 (0-0.3) K/mm3 Baso # (Auto) 0.1 (0.0-0.1) K/mm3 Abs Immat Gran (auto) 0.16 H (0.00-0.031) K/mm3 Absolute Neuts (auto) 18.2 H (1.3-6.7) K/mm3 Absolute Nucleated RBC 0.000 (0.0-0.012) K/mm3 Nucleated RBC % 0.0 (0.0-0.2) % Sodium 138 (137-145) mmol/L Potassium 3.6 (3.4-5.0) mmol/L Chloride 104 (98-107) mmol/L Carbon Dioxide 21 L (22-30) mmol/L Anion Gap 13 H (4-12) mmol/L BUN 5 L (7-17) mg/dL Creatinine 0.51 L (0.7-1.0) mg/dL Estim Creat Clear Calc 197 ml/min Estimated GFR > 60 (59 - ) Glucose 111 H (65-110) mg/dL Calcium 8.5 (8.4-10.2) mg/dL POC Urine HCG, Qual Negative (Negative) Monoscreen Negative (Negative) <Ryley Nam MD - Last Filed: 09/10/24 05:16> Imaging Data Attestation: I personally reviewed and interpreted this imaging study as follows: <Nasima Kang PA-C - Last Filed: 09/10/24 17:07> Discharge Plan Discharge Clinical Impression: Strep pharyngitis <KATE Lagunas Last Filed: 09/10/24 17:07> Patient Disposition: Home, Self-Care <KATE Lagunas Last Filed: 09/10/24 17:07> Condition: Stable <KATE Lagunas Last Filed: 09/10/24 17:07> Instructions: Antibiotic Form, Pharyngitis (ED) <Nasima Kang PA-C - Last Filed: 09/10/24 17:07> Additional Instructions: Continue antibiotics. Take steroids as prescribed. Return to the ED if you experience new or worsening concerns. <Nasima Kang PA-C - Last Filed: 09/10/24 17:07> Patient Language: Syriac <KATE Lagunas Last Filed: 09/10/24 17:07> Prescriptions: New methylprednisolone [Medrol (Walker)] 4 mg tablets,dose pack See Rx Instructions PO .COMPLEX Qty: 21 0RF Rx Instructions: orally per package directions No Action etonogestrel-ethinyl estradiol [NuvaRing] 0.12-0.015 mg/24 hr Ring 1 vag ring VAGINAL ONCE escitalopram oxalate [Lexapro] 20 mg Tablet 20 mg PO DAILY ondansetron 4 mg tablet,disintegrating 4 mg PO Q8H PRN (Reason: nausea and vomiting) Qty: 10 0RF bismuth subsalicylate [Bismuth] 262 mg tablet,chewable 2 tablet PO QID PRN (Reason: diarrhea) 5 Days Qty: 20 0RF amoxicillin 500 mg tablet 500 mg PO Q12H 10 Days Qty: 20 0RF <Nasima Kang PA-C - Last Filed: 09/10/24 17:07> Follow-up/Referrals: Sabino Spencer MD [Physician] - (ENT) UNKNOWN,DOCTOR [Primary Care Provider] - <Nasima Kang PA-C - Last Filed: 09/10/24 17:07> Stand Alone Forms: Work/School Release IP <Nasima Kang PA-C - Last Filed: 09/10/24 17:07> Time of Disposition: 05:09 <Nasima Kang PA-C - Last Filed: 09/10/24 17:07> 05:09 <Ryley Nam MD - Last Filed: 09/10/24 05:16>
[2024-09-10 01:57] LABS: Basophils Absolute Auto 0.1 K/mm3 (0.0-0.1); Basophils Percent Auto 0.3 % (0.2-1.2); Eosinophils Absolute Auto 0.2 K/mm3 (0-0.3); Eosinophils Percent Auto 0.7 % (0-4.4); Hematocrit 40.9 % (37.0-47.0); Hemoglobin 13.2 g/dL (12.0-15.0); Immature Granulocyte Absolute 0.16 K/mm3 (0.00-0.031); Immature Granulocyte Percent A 0.7 % (0-0.5); Lymphocytes Absolute Auto 1.82 K/mm3 (0.9-3.2); Lymphocytes Percent Auto 8.2 % (18.3-44.2); Mean Corpuscular HGB Conc 32.3 g/dl (32-36); Mean Corpuscular Hemoglobin 26.9 pg (26-34); Mean Corpuscular Volume 83.3 fl (80-100); Mean Platelet Volume 9.6 fl (7.4-10.4); Monocytes Absolute Auto 1.7 K/mm3 (0.1-0.6); Monocytes Percent Auto 7.9 % (2.6-8.5); Neutrophils Absolute Auto 18.2 K/mm3 (1.3-6.7); Neutrophils Percent Auto 82.2 % (45.5-73.1); Platelet Count Result 322 k/mm3 (150-375); Red Blood Count 4.91 M/mm3 (4.2-5.4); Red Cell Distribution Width 15.8 % (11.5-14.5); White Blood Count 22.2 K/mm3 (4.5-10.0)
[2024-09-10 02:03] LABS: BEDSIDEPREGUCG Negative (Negative)
[2024-09-10 02:20] LABS: Anion Gap 13 mmol/L (4-12); Blood Urea Nitrogen 5 mg/dL (7-17); Calcium 8.5 mg/dL (8.4-10.2); Carbon Dioxide 21 mmol/L (22-30); Chloride 104 mmol/L (98-107); Estimated CRCL calculation 197 ml/min; Estimated Glomerular Filt Rate > 60; Glucose 111 mg/dL (65-110); Potassium 3.6 mmol/L (3.4-5.0); Sodium 138 mmol/L (137-145)
[2024-09-10 03:41] LABS: Monoscreen Negative (Negative); Negative Monotest Control Negative (Negative); Positive Monotest Control Positive (Positive)
[2024-09-10 04:52] VITALS: BP 110/66; PULSE 87; RESP 15; O2SAT 100
[2024-09-10 05:33] VITALS: BP 112/70; PULSE 92; RESP 15; O2SAT 100
== END 2024-09-10 05:33 | disposition home or self-care (01) ==
PROVIDERS: Physician Assistant; Emergency Provider Emergency Medicine
DX: J02.0 Streptococcal pharyngitis (principal)
CPT/HCPCS: 36415; 70491; 80048; 81025; 85025; 86308; 96365; 96375; 99284; J0295; J1100; J2270; J2405; J7030; Q9967

== ENCOUNTER 2025-01-27 17:56 | Emergency (ER) | payer OTHER, SELFPAY ==
[2025-01-27 18:08] VITALS: BP 121/89; PULSE 79; RESP 16; TEMP 36.4; O2SAT 100
--- NOTE | 2025-01-27 18:27 | ED.FEMALEGU ---
HPI - Female Genitourinary General Chief complaint: Urogenital-Female Stated complaint: Uti Symptoms Time Seen by Provider: 01/27/25 18:07 Source: patient and RN notes reviewed Mode of arrival: ambulatory Limitations: no limitations History of Present Illness HPI Narrative: Patient presents today complaining of urinary frequency, dysuria, incomplete bladder emptying, and suprapubic pressure. Symptoms began this morning. No recent antibiotic use. She has tried no [id number] medication for symptoms prior to arrival. Related Data Home Medications ?Medication ?Instructions ?Recorded ?Confirmed ?Last Taken ?Type escitalopram oxalate 20 mg tablet 20 mg PO DAILY 04/22/24 01/27/25 04/21/24 History (Lexapro) etonogestrel 0.12 mg-ethinyl 1 vag ring vaginal ONCE 04/22/24 01/27/25 Unknown History estradiol 0.015 mg/24 hr vaginal ring (NuvaRing) hydroxyzine pamoate 25 mg capsule mg 01/27/25 Unknown History propranolol 80 mg capsule,24 mg PO 01/27/25 Unknown History hr,extended release sumatriptan succinate 50 mg tablet mg PO 01/27/25 Unknown History Allergies Allergy/AdvReac Type Severity Reaction Status Date / Time No Known Allergies Allergy Verified 01/27/25 18:13 Review of Systems Review of Systems: CONSTITUTIONAL: Denies body aches, fever, chills, or sweats. EYES: Denies visual changes, redness, or discharge. ENT: Denies rhinorrhea, congestion, sore throat, or otalgia. CARDIOVASCULAR: Denies chest pain, palpitations, or edema. RESPIRATORY: Denies cough or dyspnea. GASTROINTESTINAL: Denies nausea, vomiting, or diarrhea.+ suprapubic pain GENITOURINARY: + frequency, dysuria, incomplete bladder emptying. SKIN: Denies rash, itching, or wounds. MUSCULOSKELETAL: Denies back pain, joint pain, or myalgia. NEUROLOGIC: Denies headache, numbness, tingling, or weakness. PSYCH: Denies depression or anxiety. PMFSH Comments At time of signature, I have reviewed and agree with nursing past medical, surgical, social and family history unless otherwise noted. Please see nursing chart for further information. There is no relevant family history pertinent to the presenting complaint Exam Narrative: GENERAL: Well-appearing, well-nourished, and in no acute distress. HEAD: Normocephalic, atraumatic. EYES: EOMI. No redness or drainage. Conjunctivae normal. ENT: Mucous membranes pink and moist. NECK: Normal AROM. CHEST: No respiratory distress. Clear to auscultation. HEART: Regular rate and rhythm. No murmur appreciated. ABDOMEN: Soft, nondistended, normal active bowel sounds.+ suprapubic tenderness MUSCULOSKELETAL: No bony tenderness. EXTREMITIES: Normal range of motion. No edema. SKIN: Warm, dry, no rash. Capillary refill normal. Normal skin turgor. NEURO: No focal deficits. Alert and oriented x3. Gait steady. PSYCH: Normal affect. No signs of depression or anxiety. Course Course Level of Care: Express Care Visit Vital Signs Vital signs: Vital Signs Temperature 97.6 F 01/27/25 18:08 Pulse Rate 79 01/27/25 18:08 Respiratory Rate 16 01/27/25 18:08 Blood Pressure 121/89 01/27/25 18:08 Pulse Oximetry 100 01/27/25 18:08 Oxygen Delivery Room Air 01/27/25 18:08 Temperature 97.6 F 01/27/25 18:08 Pulse Rate 79 01/27/25 18:08 Respiratory Rate 16 01/27/25 18:08 Blood Pressure 121/89 01/27/25 18:08 Pulse Oximetry 100 01/27/25 18:08 Oxygen Delivery Room Air 01/27/25 18:08 Reviewed MDM - Female Genitourinary MDM Narrative Medical decision making narrative: Urinalysis suggests onset of UTI. Will treat with Augmentin. Culture pending. Anticipatory guidance. Differential Diagnosis Differential diagnosis: Likely urinary tract infection, vaginitis and cystitis Lab Data Attestation: I reviewed the patient's lab results. Lab results narrative: Urinalysis: Glucose negative Bilirubin negative Ketones 1+ Specific gravity 1.025 Blood negative PH 5.5 Protein negative Urobilinogen 0.2 Nitrites negative Leukocyte esterase trace. Critical Care Time Critical Care Time Critical Care Time: No Discharge Plan Discharge Clinical Impression: Urinary tract infection Qualifiers: Urinary tract infection type: acute cystitis Hematuria presence: without hematuria Qualified Code(s): N30.00 - Acute cystitis without hematuria Patient Disposition: Home Condition: Stable Instructions: Antibiotic Form, Urinary Tract Infection in Women (ED) Additional Instructions: Your urine shows infection today. Take Augmentin as prescribed until gone. Your urine will be sent of for a culture to identify what type of bacteria is causing your infection. If the culture shows that your medication will not get rid of your infection, you will be notified and a new antibiotic will be called in for you. If your symptoms worsen to include fever, sweats, chills, nausea, vomiting, severe abdominal or back pain, please go to the ER for further evaluation. Your blood pressure was elevated above 120/80 today at Urgent Care. This puts you above the threshold for follow up. Please schedule a followup visit with your personal physician as soon as possible, for further evaluation and treatment. Even blood pressure exceeding 120/80 may indicate pre-hypertension. Patient Language: Mohawk Prescriptions: New amoxicillin-pot clavulanate 875-125 mg tablet 1 tablet PO Q12H 7 Days Qty: 14 0RF No Action sumatriptan succinate 50 mg tablet PO propranolol 80 mg capsule,extended release 24 hr PO hydroxyzine pamoate 25 mg capsule etonogestrel-ethinyl estradiol [NuvaRing] 0.12-0.015 mg/24 hr Ring 1 vag ring VAGINAL ONCE escitalopram oxalate [Lexapro] 20 mg Tablet 20 mg PO DAILY Follow-up/Referrals: PHYSICIAN,MASH PROCESSING OPERATOR [Primary Care Provider] - Time of Disposition: 18:31
[2025-01-27 19:06] LABS: EDUAAPPEAR Clear; EDUABILI Negative (Negative); EDUABLOOD Negative (Negative); EDUACOLOR1 Yellow; EDUAGLUCOSE Negative (Negative); EDUAKETONE 1+ (Negative); EDUALEUKO Trace (Negative); EDUANITRATE Negative (Negative); EDUAPH 5.5; EDUAPROTEIN Negative (Negative); EDUASPGRAVITY 1.025; EDUAUROBILI 0.2
== END 2025-01-27 18:33 | disposition home or self-care (01) ==
PROVIDERS: Emergency Provider Nurse Practitioner
DX: N30.00 Acute cystitis without hematuria (principal); F41.9 Anxiety disorder, unspecified
CPT/HCPCS: 81003; 87086; 99213; G0463

== ENCOUNTER 2025-03-28 17:38 | Emergency (ER) | payer OTHER, SELFPAY ==
--- NOTE | 2025-03-28 17:42 | ED.URI ---
HPI - URI/Sore Throat General Chief Complaint: Upper Respiratory Infection Stated Complaint: throat irritation Time Seen by Provider: 03/28/25 17:49 Source: patient Mode of arrival: ambulatory Limitations: no limitations History of Present Illness HPI Narrative: Shama is a 20-year-old female patient presenting to the clinic today with complaints of a sore throat x 1 day. She reports symptoms started last night. No nasal congestion, cough, fever, chills, or body aches. Denies any chest pain or shortness of breath. No known sick contacts. Related Data Home Medications ?Medication ?Instructions ?Recorded ?Confirmed ?Last Taken ?Type etonogestrel 0.12 mg-ethinyl 1 vag ring vaginal ONCE 04/22/24 03/28/25 Unknown History estradiol 0.015 mg/24 hr vaginal ring (NuvaRing) hydroxyzine pamoate 25 mg capsule 25 mg PO DAILY PRN nausea and 01/27/25 03/28/25 Unknown History vomiting propranolol 80 mg capsule,24 80 mg PO Q24H 01/27/25 03/28/25 Unknown History hr,extended release sumatriptan succinate 50 mg tablet 50 mg PO Q2H PRN migraine headache 01/27/25 03/28/25 Unknown History Allergies Allergy/AdvReac Type Severity Reaction Status Date / Time No Known Allergies Allergy Verified 03/28/25 17:50 Review of Systems Review of Systems: Pertinent positives per HPI. Patient denies any fever, chills, rash, headache, visual changes, dizziness, cough, shortness of breath, chest pain, palpitations, nausea, vomiting, diarrhea, constipation, abdominal pain, or any urinary issues. PMFSH Comments At the time of my signature, I reviewed and agree with the nursing past medical, surgical, social, and family history. There is no relevant family history pertinent to the patient complaint. Exam Narrative: General: Well-developed, morbidly obese, in no apparent distress Head: Normocephalic, atraumatic Eyes: Pupils equally round and reactive to light bilaterally, EOM intact, sclera and conjunctive clear, no discharge, lids normal Ears: TMs intact and clear, ear canals clear, no drainage, grossly hearing normal. Nose: Nares patent, no discharge, no inflammation, no sinus tenderness. Mouth: Oral pharynx red without lesions or masses, good dentition, MMM. Neck: Supple, trachea midline, no enlargement of anterior or posterior cervical nodes, no thyroid masses or goiter palpable. Cardio: Regular rate and rhythm, s1 and s2 normal, no murmur appreciated. Resp: Clear to auscultation bilaterally, no rhonchi, rales, wheezing or rubs Course Course Emergency Course: Portions of this record may have been created with voice recognition software. Level of Care: Express Care Visit Vital Signs Vital signs: Vital Signs Temperature 36.8 C 03/28/25 17:48 Pulse Rate 99 03/28/25 17:48 Respiratory Rate 16 03/28/25 17:48 Blood Pressure 134/92 H 03/28/25 17:48 Pulse Oximetry 99 03/28/25 17:48 Oxygen Delivery Room Air 03/28/25 17:48 Temperature 36.8 C 03/28/25 17:48 Pulse Rate 99 03/28/25 17:48 Respiratory Rate 16 03/28/25 17:48 Blood Pressure 134/92 H 03/28/25 17:48 Pulse Oximetry 99 03/28/25 17:48 Oxygen Delivery Room Air 03/28/25 17:48 Vital signs reviewed MDM - URI/Sore Throat MDM Narrative Medical decision making narrative: At the time of visit patient is resting comfortably on the exam table. Patient appears to be nontoxic. Complaints of a sore throat x 1 day. She reports symptoms started last night. No nasal congestion, cough, fever, chills, or body aches. Denies any chest pain or shortness of breath. Strep test ordered. Labs: Strep test was performed and negative in the clinic today. We will send strep for culture. Plan: I suspect patient has viral pharyngitis. Will send strep for culture. Supportive measures were discussed with the patient and they voiced understanding discharge instructions and agrees to treatment plan. Return precautions reviewed Differential Diagnosis Differential diagnosis: Likely upper respiratory infection, otitis media, sinusitis, viral infection, bronchitis, influenza, pharyngitis and other (COVID) Discharge Plan Discharge Clinical Impression: Pharyngitis Qualifiers: Pharyngitis/tonsillitis etiology: unspecified etiology Qualified Code(s): J02.9 - Acute pharyngitis, unspecified Patient Disposition: Home Condition: Stable Instructions: Antibiotic Form, Pharyngitis (ED) Additional Instructions: Increase fluids and stay well hydrated May take Tylenol or motrin as directed on bottle for pain/fever May use Flonase 1 spray in each nare daily May take OTC antihistamines such as Zyrtec or Claritin daily as directed on bottle May apply Vicks vapor rub to chest to open sinuses Sinus rinses for congestion Cepacol spray, cough drops, throat lozenges, warm tea with honey/lemon, gargle salt water to soothe throat BRAT diet for diarrhea Clear liquids x 24 hours then advance as tolerated for nausea/vomiting Go to the ED if you develop a worsening in your condition- high fever not controlled by Tylenol or Motrin, dehydration, weakness, lethargy, shortness of breath, or chest pain. Follow up with your PCP in 3-5 days if symptoms persist. Patient Language: Occitan Prescriptions: No Action sumatriptan succinate 50 mg tablet 50 mg PO Q2H PRN (Reason: migraine headache) propranolol 80 mg capsule,extended release 24 hr 80 mg PO Q24H hydroxyzine pamoate 25 mg capsule 25 mg PO DAILY PRN (Reason: nausea and vomiting) etonogestrel-ethinyl estradiol [NuvaRing] 0.12-0.015 mg/24 hr Ring 1 vag ring VAGINAL ONCE Follow-up/Referrals: UNKNOWN,DOCTOR [Non-Staff] - Time of Disposition: 18:08 Quality NIHSS Nursing Documentation ED NIHSS nursing documentation: reviewed/agree
[2025-03-28 17:48] VITALS: BP 134/92; PULSE 99; RESP 16; TEMP 36.8; O2SAT 99
[2025-03-28 18:04] LABS: EDSTREPNEGPOS1 Negative (Negative)
--- NOTE | 2025-04-02 12:10 | PC.NURSE ---
final strep culture negative
== END 2025-03-28 18:05 | disposition home or self-care (01) ==
PROVIDERS: Emergency Provider Nurse Practitioner Family
DX: J02.9 Acute pharyngitis, unspecified (principal)
CPT/HCPCS: 87081; 87880; 99213; G0463